=== PATIENT | female | born 1985 | race American Indian/Alaskan Native ===

== ENCOUNTER 2016-12-26 20:47 | Emergency (ER) | payer OTHER, MEDICAID ==
--- NOTE | 2016-12-26 23:21 | XRay Report ---
FINAL REPORT PROCEDURE: XR KNEE BILAT 1-2V TECHNIQUE: LEFT knee radiographs, AP, lateral and oblique views. CPT 94776 HISTORY: B/L Knee pain COMPARISON: No prior studies are available for comparison. FINDINGS: Fracture (s) and/or Dislocation(s): None . Alignment: Normal . Joint space(s): Normal . Soft tissues: Normal . Bone mineralization: Normal . Foreign bodies: None . IMPRESSION: Normal Examination.
[2016-12-27] MEDS ORDERED: TORADOL IM ONE (02:28)
[2016-12-27] MEDS ORDERED: FLEXERIL PO ONE (02:28)
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
[2016-12-27] MEDS ORDERED: TORADOL ONE (02:52)
[2016-12-27 03:05] VITALS: BP 120/77
== END 2016-12-27 03:05 | disposition home or self-care (01) ==
LOC: ED 20:47
DX: M25.561 Pain in right knee (principal); M25.562 Pain in left knee; E11.9 Type 2 diabetes mellitus without complications; J45.909 Unspecified asthma, uncomplicated; V89.2XXA Person injured in unspecified motor-vehicle accident, traffic, initial encounter; Y93.89 Activity, other specified; Y99.9 Unspecified external cause status; Y92.410 Unspecified street and highway as the place of occurrence of the external cause
CPT/HCPCS: 73560; 96372; 99283; J1885